=== PATIENT | female | born 1975 | race Caucasian/White ===

== ENCOUNTER 2017-08-06 23:20 | Emergency (ER) | payer BC ==
--- NOTE | 2017-08-06 23:43 | EDM.PDOC ---
ED HPI GENERAL MEDICAL PROBLEM - General Chief Complaint: Back Pain or Injury Stated Complaint: HAS PAIN IN BACK AND HURTS TO BREATH Time Seen by Provider: 08/06/17 23:43 Source of Information: Reports: Patient - History of Present Illness INITIAL COMMENTS - FREE TEXT/NARRATIVE: HISTORY AND PHYSICAL: History of present illness: []Patient presents with right low back pain as well as mid back after clean her house today no injury or trauma she was mainly doing dusting [place] of 6 out of 10 nonradiating pain to the right paraspinous distribution, pain begin to alleviate it alleviated shortly after being in the ER initially she had pain on deep inspiration this is improved she is moving freely without any discomfort at this time No fever nausea vomiting chills sweats Review of systems: As per history of present illness and below otherwise all systems reviewed and negative. Past medical history: As per history of present illness and as reviewed below otherwise noncontributory. Surgical history: As per history of present illness and as reviewed below otherwise noncontributory. Social history: No reported history of drug or alcohol abuse. Family history: As per history of present illness and as reviewed below otherwise noncontributory. Physical exam: HEENT: Atraumatic, normocephalic, pupils reactive, negative for conjunctival pallor or scleral icterus, mucous membranes moist, throat clear, neck supple, nontender, trachea midline. Lungs: Clear to auscultation, breath sounds equal bilaterally, chest nontender. Heart: S1S2, regular, negative for clicks, rubs, or JVD. Abdomen: Soft, nondistended, nontender. Negative for masses or hepatosplenomegaly. Negative for costovertebral tenderness. Pelvis: Stable nontender. Genitourinary: Deferred. Rectal: Deferred. Extremities: Atraumatic, negative for cords or calf pain. Neurovascular unremarkable. Neuro: Awake, alert, oriented. Cranial nerves II through XII unremarkable. Cerebellum unremarkable. Motor and sensory unremarkable throughout. Exam nonfocal. Diagnostics: [Lumbar spine UA hCG ] Therapeutics: [ rest ice ibuprofen ] Impression: [ right paraspinous muscle spasm -improved] Definitive disposition and diagnosis as appropriate pending reevaluation and review of above. Middle Back Pain Score (Numeric/FACES): 5 - Related Data Allergies Allergy/AdvReac Type Severity Reaction Status Date / Time erythromycin base Allergy Other Verified 08/07/17 00:58 Iodinated Contrast- Oral and Allergy Other Verified 08/07/17 00:58 IV Dye ipratropium [From Atrovent] Allergy Other Verified 08/07/17 00:58 levofloxacin [From Levaquin] Allergy Other Verified 08/07/17 00:58 Penicillins Allergy Other Verified 08/07/17 00:58 sulfamethoxazole Allergy Other Verified 08/07/17 00:58 [From Bactrim] trimethoprim [From Bactrim] Allergy Other Verified 08/07/17 00:58 Home Meds: Home Meds . [Unable to Verify Home Med List] 08/07/17 [History] Past Medical History Cardiovascular History: Reports: Other (See Below) Other Cardiovascular History: valve regurgitation Social & Family History - Tobacco Use Smoking Status *Q: Never Smoker ED ROS GENERAL - Review of Systems Review Of Systems: See Below ED EXAM, GENERAL - Physical Exam Exam: See Below Course - Vital Signs Last Recorded V/S: Last Vital Signs Temp 98.7 F 08/06/17 23:38 Pulse 78 08/06/17 23:38 Resp 18 08/06/17 23:38 BP 150/77 H 08/06/17 23:38 Pulse Ox 98 08/06/17 23:38 - Orders/Labs/Meds Orders: Active Orders 24 hr Category Date Time Status Lumbar Spine 2 or 3V [CR] Stat Exams 08/06/17 23:43 Taken HCG QUALITATIVE,URINE [URCHEM] Stat Lab 08/06/17 23:49 Ordered UA W/MICROSCOPIC [URIN] Stat Lab 08/06/17 23:49 Ordered Labs: Laboratory Tests 08/06/17 08/06/17 Range/Units 23:49 23:49 Urine Color YELLOW Urine Appearance HAZY Urine pH 5.5 (5.0-8.0) Ur Specific [place] >= 1.030 (1.001-1.035) Urine Protein NEGATIVE (NEGATIVE) mg/dL Urine Glucose (UA) NEGATIVE (NEGATIVE) mg/dL Urine Ketones NEGATIVE (NEGATIVE) mg/dL Urine Occult Blood TRACE-INTACT (NEGATIVE) Urine Nitrite NEGATIVE (NEGATIVE) Urine Bilirubin NEGATIVE (NEGATIVE) Urine Urobilinogen 0.2 (<2.0) EU/dL Ur Leukocyte Esterase NEGATIVE (NEGATIVE) Urine RBC 0-3 (0-2/HPF) Urine WBC 0-3 (0-5/HPF) Ur Epithelial Cells MODERATE (NONE-FEW) Urine Bacteria FEW (NEGATIVE) Urine HCG, Qual NEGATIVE (NEGATIVE) Meds: Medications Discontinued Medications Generic Name Dose Route Start Last Admin Trade Name Sandee PRN Reason Stop Dose Admin Ketorolac Tromethamine 60 mg 08/06/17 23:44 08/06/17 23:49 Toradol IM 08/06/17 23:45 Not Given ONETIME ONE Departure - Departure Time of Disposition: 01:09 Disposition: Home, Self-Care 01 Condition: Good Clinical Impression: Spasm of lumbar paraspinous muscle - Discharge Information Referrals: Rhina Moore DO [Primary Care Provider] - Forms: ED Department Discharge Additional Instructions: Rest Ice 20 minute intervals 3 times daily as needed Ibuprofen 400 mg 3 times daily 7-10 days Follow-up with primary care in 2 weeks sooner as needed [facility] - Primary Care [address] [place] [id number] The following information is given to patients seen in the emergency department who are being discharged to home. This information is to outline your options for follow-up care. We provide all patients seen in our emergency department with a follow-up referral. The need for follow-up, as well as the timing and circumstances, are variable depending upon the specifics of your emergency department visit. If you don't have a primary care physician on staff, we will provide you with a referral. We always advise you to contact your personal physician following an emergency department visit to inform them of the circumstance of the visit and for follow-up with them and/or the need for any referrals to a consulting specialist. The emergency department will also refer you to a specialist when appropriate. This referral assures that you have the opportunity for follow-up care with a specialist. All of these measure are taken in an effort to provide you with optimal care, which includes your follow-up. Under all circumstances we always encourage you to contact your private physician who remains a resource for coordinating your care. When calling for follow-up care, please make the office aware that this follow-up is from your recent emergency room visit. If for any reason you are refused follow-up, please contact the [facility] emergency department at and asked to speak to the emergency department charge nurse. - My Orders Last 24 Hours: My Active Orders 08/06/17 23:43 Lumbar Spine 2 or 3V [CR] Stat 08/06/17 23:49 HCG QUALITATIVE,URINE [URCHEM] Stat UA W/MICROSCOPIC [URIN] Stat - Assessment/Plan Last 24 Hours: My Active Orders 08/06/17 23:43 Lumbar Spine 2 or 3V [CR] Stat 08/06/17 23:49 HCG QUALITATIVE,URINE [URCHEM] Stat UA W/MICROSCOPIC [URIN] Stat
[2017-08-06] MEDS ORDERED: Ketorolac 60 MG/2 ML SDV IM ONE (23:44)
--- NOTE | 2017-08-08 14:51 | CR ---
EXAM DATE: 08/06/17 PATIENT'S AGE: 41 Patient: MERCED CHESTER Facility: [place], [place] Site . Site : [id number] Study: XRay Spine Lumbar [id number]/[id number] 12:37:37 AM Ordering Physician: Doctor Trejo Final Report: INDICATION: Low back pain, no known injury TECHNIQUE: Lumbar spine 3 view. COMPARISON: CT abdomen July 17, 2017 FINDINGS: Bones: Alignment is normal. No fractures or significant bone lesions. Joints: Moderate degenerative disc disease at the L4-L5 and L5-S1 levels. Soft tissues: Unremarkable. IMPRESSION: Degenerative disc disease at the L4-S1 levels. No acute fracture, subluxation, or suspicious bone lesion. Dictated by Harper Jones MD @ Aug 07 2017 1:08AM (Electronic Signature) Report Signed by Proxy. JE
== END 2017-08-07 01:20 | disposition home or self-care (01) ==
LOC: MW.ED 23:20
DX: M62.830 Muscle spasm of back (principal); Z88.1 Allergy status to other antibiotic agents; Z91.041 Radiographic dye allergy status; Z88.0 Allergy status to penicillin; Z88.2 Allergy status to sulfonamides
CPT/HCPCS: 72100; 72100-26; 81001; 81025; 99283

== ENCOUNTER 2021-01-04 19:04 | Emergency (ER) | payer BC ==
--- NOTE | 2021-01-04 19:55 | EDM.PDOC ---
ED HPI GENERAL MEDICAL PROBLEM - General Chief Complaint: Respiratory Problem Stated Complaint: TROUBLE BREATHING, COUGH Time Seen by Provider: 01/04/21 19:10 Source of Information: Reports: Patient History Limitations: Reports: No Limitations - History of Present Illness INITIAL COMMENTS - FREE TEXT/NARRATIVE: 45-year-old female with history of asthma presents with symptoms concerning for Covid. She notes worsening shortness of breath over the past week, cough, chills, myalgia, generalized malaise, nausea, ageusia, anosmia. She was not vaccinated against Covid. She denies sore throat, headache, chest pain. She thinks her brought help at home. ROS: A 10-point review of systems, other than pertinent positives and negatives as stated per HPI, is otherwise negative Past medical history: No additional pertinent history Past Surgical history: No additional pertinent history Social history: No additional pertinent history Family history: No additional pertinent history PHYSICAL EXAM General: AOx4, GCS = 15, No distress HEENT: dry mucous membrane Neck: supple, no meningismus, no Kernig or Brudzinski Cardiac: S1S2 tachycardia Respiratory: CTAB, no crackles or rales, no wheezing Abdomen: Soft, nontender, no rebound or guarding, nondistended, no pulsatile mass. Back: nontender Musculoskeletal: NVI distally, no deformity Neuro: No focal deficits, CN 2 - 12 WNL. - Related Data Allergies Allergy/AdvReac Type Severity Reaction Status Date / Time erythromycin base Allergy Other Verified 08/07/17 00:58 Iodinated Contrast Media Allergy Other Verified 08/07/17 00:58 ipratropium [From Atrovent] Allergy Other Verified 08/07/17 00:58 levofloxacin [From Levaquin] Allergy Other Verified 08/07/17 00:58 Penicillins Allergy Other Verified 08/07/17 00:58 sulfamethoxazole Allergy Other Verified 08/07/17 00:58 [From Bactrim] trimethoprim [From Bactrim] Allergy Other Verified 08/07/17 00:58 Home Meds: Home Meds Albuterol [Ventolin HFA] 2 puff INH ASDIRECTED PRN 01/04/21 [History] Cefuroxime [Ceftin] 500 mg PO BID #20 tab 01/04/21 [Rx] Doxycycline [Vibra-Tabs] 100 mg PO Q12HR #20 tab 01/04/21 [Rx] Past Medical History Cardiovascular History: Reports: Other (See Below) Other Cardiovascular History: valve regurgitation, pericarditits Respiratory History: Reports: Asthma Endocrine/Metabolic History: Reports: Obesity/BMI 30+ - Infectious Disease History Infectious Disease History: Reports: Chicken Pox Social & Family History - Tobacco Use Tobacco Use Status *Q: Never Tobacco User Second Hand Smoke Exposure: No - Recreational Drug Use Recreational Drug Use: No ED ROS GENERAL - Review of Systems Review Of Systems: See Below (see dictation) ED EXAM, GENERAL - Physical Exam Exam: See Below (see dictation) Course - Vital Signs Last Recorded V/S: Last Vital Signs Temp 98.1 F 01/04/21 19:32 Pulse 108 H 01/04/21 19:32 Resp 16 01/04/21 19:32 BP 158/85 H 01/04/21 19:32 Pulse Ox 95 01/04/21 19:32 - Orders/Labs/Meds Labs: Laboratory Tests 01/04/21 Range/Units 19:40 SARS-CoV-2 RNA (DENIA) POSITIVE H (NEGATIVE) - Re-Assessments/Exams Free Text/Narrative Re-Assessment/Exam: 01/04/21 20:54 After observation in the ER, the patient improved and is currently stable for discharge. I performed a repeat exam and did not appreciate new abnormal findings. Patient exhibits normal vital signs and has a normal gait on road test. I advised the patient to return to the ER for reevaluation if symptoms worsened, including fever, worsening pain, or any other worrisome symptoms. I instructed the patient to follow up with their PCP within 2-3 days. MEDICAL DECISION MAKING: I reviewed the patients past medical records, lab and radiographic findings. I discussed the case with the patient. My differential diagnosis included: Covid, PNA. She was evaluated for the symptoms described in the history of present illness. They were evaluated in the context of the global COVID-19 pandemic, which necessitated consideration that the patient might be at risk for infection with the SARS-CoV-2 virus that causes COVID-19. Institutional protocols and algorithms that pertain to the evaluation of patients at risk for COVID-19 are in a state of rapid change based on information released by regulatory bodies including the CDC and federal and state organizations. These policies and algorithms were followed during the patient's care. I wore full PPE, N95, face shield, gown and gloves throughout my evaluation and care of this patient. I recommended home isolation. given home isolation instructions. CXR demonstrated LLL consolidation consistent with bacterial pneumonia. Will Rx with ABx for bacterial pneumonia. The patient is well appearing, not in respiratory distress, not hypoxic, no tac hyneia, no retractions. I instructed patient to return immediately for worsening symptoms, sob, chest pain, lightheadedness or other concerns. Patient voiced understanding and questions answered. Departure - Departure Time of Disposition: 20:47 Disposition: Home, Self-Care 01 Condition: Good Clinical Impression: Pneumonia, COVID-19 - Discharge Information *PRESCRIPTION DRUG MONITORING PROGRAM REVIEWED*: Not Applicable *COPY OF PRESCRIPTION DRUG MONITORING REPORT IN PATIENT ADAN: Not Applicable Prescriptions: Cefuroxime [Ceftin] 500 mg PO BID #20 tab Doxycycline [Vibra-Tabs] 100 mg PO Q12HR #20 tab Instructions: Community-Acquired Pneumonia, Adult, [id number], COVID-19 Vaccine Information, What You Should Know About COVID-19 to Protect Yourself and Others - CDC, How to Wear and Take Off Your Mask - CDC (05/22/2020) Referrals: Rhina Moore DO [Primary Care Provider] - 3 Days Forms: ED Department Discharge Additional Instructions: The need for follow-up, as well as the timing and circumstances, are variable depending upon the specifics of your emergency department visit. If you don't have a primary care physician on staff, we will provide you with a referral. We always advise you to contact your personal physician following an emergency department visit to inform them of the circumstance of the visit and for follow-up with them and/or the need for any referrals to a consulting specialist. The emergency department will also refer you to a specialist when appropriate. This referral assures that you have the opportunity for follow-up care with a specialist. All of these measure are taken in an effort to provide you with optimal care, which includes your follow-up. Under all circumstances we always encourage you to contact your private physician who remains a resource for coordinating your care. When calling for follow-up care, please make the office aware that this follow-up is from your recent emergency room visit. If for any reason you are refused follow-up, please contact the [facility] Emergency Department at and asked to speak to the emergency department charge nurse. If you do not have a primary care doctor, please follow up with the clinics below within 3-5 days. [facility] - Primary Care [address] [place] [id number] [facility] [address] [place] [id number] Sepsis Event Note (ED) - Evaluation Sepsis Screening Result: No Definite Risk - Focused Exam Vital Signs: Vital Signs Temp Pulse Resp BP Pulse Ox 01/04/21 19:32 98.1 F 108 H 16 158/85 H 95
--- NOTE | 2021-01-04 20:13 | CR ---
INDICATION: Cough, shortness of breath, loss of smell TECHNIQUE: Chest radiograph 1 view COMPARISON: None FINDINGS: The sensitivity and specificity of the exam are moderately limited by the patient`s body habitus. Mediastinum: The mediastinum is normal in appearance. The heart silhouette is normal in size and morphology. Multiple surgical clips are present along the right upper quadrant and medial right hemidiaphragm. Lung: Patchy airspace consolidation is present in the left lower lung zone, likely due to pneumonia. Small lung volumes are noted bilaterally. No sign of pleural effusion seen. No pneumothorax is identified. Bone and Soft tissue: Unremarkable for age. IMPRESSION: 1. Patchy airspace consolidation is present in the left lower lung zone, likely due to pneumonia. Dictated by Mikey Porter MD @ 01/04/2021 8:12:28 PM Dictated by: Mikey Porter MD @ 01/04/2021 20:12:43 (Electronically Signed)
== END 2021-01-04 21:04 | disposition home or self-care (01) ==
LOC: MW.ED 19:04
DX: U07.1 COVID-19 (principal); J12.82 Pneumonia due to coronavirus disease 2019; J45.909 Unspecified asthma, uncomplicated; E66.9 Obesity, unspecified; Z68.35 Body mass index [BMI] 35.0-35.9, adult; Z88.1 Allergy status to other antibiotic agents; Z91.041 Radiographic dye allergy status; Z88.8 Allergy status to other drugs, medicaments and biological substances; Z88.0 Allergy status to penicillin; Z88.2 Allergy status to sulfonamides; Z79.899 Other long term (current) drug therapy
CPT/HCPCS: 71045; 71045-26; 99285-25; U0002

== ENCOUNTER 2021-01-05 01:11 | Emergency (ER) | payer BC ==
--- NOTE | 2021-01-05 01:14 | EDM.PDOC ---
ED HPI GENERAL MEDICAL PROBLEM - General Stated Complaint: HAS COVID, SHORTNESS OF BREATH Time Seen by Provider: 01/05/21 01:12 Source of Information: Reports: Patient History Limitations: Reports: No Limitations - History of Present Illness INITIAL COMMENTS - FREE TEXT/NARRATIVE: 45-year-old female diagnosed with Covid within the last 6 hours returns for coughing. She has had symptoms for 1 week, including ageusia, anosmia, malaise, myalgia, cough. She was discharge at 8 PM on 01/04, diagnosed with Covid, and returns for coughing. ROS: A 10-point review of systems, other than pertinent positives and negatives as stated per HPI, is otherwise negative Past medical history: No additional pertinent history Past Surgical history: No additional pertinent history Social history: No additional pertinent history Family history: No additional pertinent history PHYSICAL EXAM General: AOx4, GCS = 15, No distress HEENT: dry mucous membrane Neck: supple, no meningismus, no Kernig or Brudzinski Cardiac: S1S2 RRR Respiratory: CTAB, no crackles or rales, no wheezing Abdomen: Soft, nontender, no rebound or guarding, nondistended, no pulsatile mass. Back: nontender Musculoskeletal: NVI distally, no deformity Neuro: No focal deficits, CN 2 - 12 WNL. - Related Data Allergies Allergy/AdvReac Type Severity Reaction Status Date / Time erythromycin base Allergy Other Verified 08/07/17 00:58 Iodinated Contrast Media Allergy Other Verified 08/07/17 00:58 ipratropium [From Atrovent] Allergy Other Verified 08/07/17 00:58 levofloxacin [From Levaquin] Allergy Other Verified 08/07/17 00:58 Penicillins Allergy Other Verified 08/07/17 00:58 sulfamethoxazole Allergy Other Verified 08/07/17 00:58 [From Bactrim] trimethoprim [From Bactrim] Allergy Other Verified 08/07/17 00:58 Home Meds: Home Meds Albuterol [Ventolin HFA] 2 puff INH ASDIRECTED PRN 01/04/21 [History] Cefuroxime [Ceftin] 500 mg PO BID #20 tab 01/04/21 [Rx] Doxycycline [Vibra-Tabs] 100 mg PO Q12HR #20 tab 01/04/21 [Rx] Benzonatate 100 mg PO BID #10 capsule 01/05/21 [Rx] Past Medical History Cardiovascular History: Reports: Other (See Below) Other Cardiovascular History: valve regurgitation, pericarditits Respiratory History: Reports: Asthma Endocrine/Metabolic History: Reports: Obesity/BMI 30+ - Infectious Disease History Infectious Disease History: Reports: Chicken Pox ED ROS GENERAL - Review of Systems Review Of Systems: See Below (see dictation) ED EXAM, GENERAL - Physical Exam Exam: See Below (see dictation) Course - Re-Assessments/Exams Free Text/Narrative Re-Assessment/Exam: 01/05/21 01:15 After given Phenergan with codeine, she is currently stable for discharge. I performed a repeat exam and did not appreciate new abnormal findings. Patient exhibits normal vital signs and has a normal gait on road test. I advised the patient to return to the ER for reevaluation if symptoms worsened, including fever, worsening pain, or any other worrisome symptoms. I instructed the patient to follow up with their PCP within 2-3 days. MEDICAL DECISION MAKING: I reviewed the patients past medical records, lab and radiographic findings. I discussed the case with the patient. My differential diagnosis included: This patient was evaluated for the symptoms described in the history of present illness. They were evaluated in the context of the global COVID-19 pandemic, which necessitated consideration that the patient might be at risk for infection with the SARS-CoV-2 virus that causes COVID-19. Institutional protocols and algorithms that pertain to the evaluation of patients at risk for COVID-19 are in a state of rapid change based on information released by regulatory bodies including the CDC and federal and state organizations. These policies and algorithms were followed during the patient's care. I wore full PPE, N95, face shield, gown and gloves throughout my evaluation and care of this patient. I recommended home isolation. given home isolation instructions. The patient is well appearing, not in respiratory distress, not hypoxic, no tachyneia, no retractions. I instructed patient to return immediately for worsening symptoms, sob, chest pain, lightheadedness or other concerns. Patient voiced understanding and questions answered. Departure - Departure Time of Disposition: 01:15 Disposition: Home, Self-Care 01 Condition: Good Clinical Impression: COVID-19 - Discharge Information *PRESCRIPTION DRUG MONITORING PROGRAM REVIEWED*: Not Applicable *COPY OF PRESCRIPTION DRUG MONITORING REPORT IN PATIENT ADAN: Not Applicable Prescriptions: Benzonatate 100 mg PO BID #10 capsule Instructions: How to Protect Yourself and Others - CDC (10/03/2020), Symptoms of COVID-19 - [facility] (04/14/2020) Referrals: Rhina Moore DO [Primary Care Provider] - 3 Days Additional Instructions: The need for follow-up, as well as the timing and circumstances, are variable depending upon the specifics of your emergency department visit. If you don't have a primary care physician on staff, we will provide you with a referral. We always advise you to contact your personal physician following an emergency department visit to inform them of the circumstance of the visit and for follow-up with them and/or the need for any referrals to a consulting specialist. The emergency department will also refer you to a specialist when appropriate. This referral assures that you have the opportunity for follow-up care with a specialist. All of these measure are taken in an effort to provide you with optimal care, which includes your follow-up. Under all circumstances we always encourage you to contact your private physician who remains a resource for coordinating your care. When calling for follow-up care, please make the office aware that this follow-up is from your recent emergency room visit. If for any reason you are refused follow-up, please contact the [facility] Emergency Department at and asked to speak to the emergency department charge nurse. If you do not have a primary care doctor, please follow up with the clinics below within 3-5 days. [facility] - Primary Care [address] [place] [address] [id number] [address] [id number]
[2021-01-05] MEDS ORDERED: diphenhydrAMINE 50 MG Cap PO ONE (01:20)
[2021-01-05] MEDS ORDERED: Codeine/Promethazine 10-6.25 MG/5 ML Syrup 5 ML UD Syringe ONE (01:26)
[2021-01-05] MEDS ORDERED: Codeine/Promethazine 10-6.25 MG/5 ML Syrup 5 ML UD Syringe PO SCH (04:00)
== END 2021-01-05 01:40 | disposition home or self-care (01) ==
LOC: MW.ED 01:11
DX: U07.1 COVID-19 (principal); E66.9 Obesity, unspecified; Z68.45 Body mass index [BMI] 70 or greater, adult; Z88.0 Allergy status to penicillin; Z91.041 Radiographic dye allergy status; Z88.1 Allergy status to other antibiotic agents
CPT/HCPCS: 99283; A9270